=== PATIENT | female | born 1985 | race Caucasian/White ===

== ENCOUNTER 2018-11-24 18:43 | Emergency (ER) | payer OTHER ==
[~2018-11-24] VITALS: Ht 160 cm; Wt 69.1 kg
[2018-11-24] MEDS ORDERED: ceFAZolin SODIUM 2 GM in IV DEXTROSE 5% 50 ML IV ONE (19:15)
[2018-11-24] MEDS ORDERED: IV NORMAL SALINE 1,000ML 1,000 ML IV ONE ×2 (19:15→21:15)
[2018-11-24 19:46] LABS: BASO % 0 % (0-3); EOS # 0.1 x10^3/uL (0.0-0.7); EOS % 1 % (0-3); HEMATOCRIT 44.1 % (36.0-47.0); LYMPH # 0.5 x10^3/uL (1.0-4.8); LYMPH % 7 % (24-48); MEAN CORPUSCULAR HEMOGLOBIN 29 pg (25-35); MEAN CORPUSCULAR HGB CONC 34 g/dL (31-37); MEAN CORPUSCULAR VOLUME 86 fL (79-100); MONO # 0.7 x10^3/uL (0.0-1.1); MONO % 9 % (0-9); NEUT # 6.4 x10^3uL (1.8-7.7); NEUT % 83 % (31-73); PLATELET COUNT 175 x10^3/uL (140-400); RED BLOOD COUNT 5.13 x10^6/uL (3.50-5.40); RED CELL DISTRIBUTION WIDTH 12.4 % (11.5-14.5); WHITE BLOOD COUNT 7.7 x10^3/uL (4.0-11.0)
[2018-11-24] MEDS ORDERED: ceFAZolin SODIUM 1 GM VIAL ONE (19:47)
[2018-11-24 19:57] LABS: ALBUMIN/GLOBULIN RATIO 1.1 (1.0-1.7); CALCIUM 8.5 mg/dL (8.5-10.1); CREATININE 0.8 mg/dL (0.6-1.0); GFR 82.1; POTASSIUM 3.4 mmol/L (3.5-5.1); TOTAL BILIRUBIN 0.3 mg/dL (0.2-1.0); TOTAL PROTEIN 7.5 g/dL (6.4-8.2)
[2018-11-24] MEDS ORDERED: IOHEXOL 300 MG/ML 75 ML VIAL. IV ONE (20:30)
[2018-11-24] MEDS ORDERED: IOHEXOL 350 MG/ML 100 ML VIAL. IV ONE (20:45)
[2018-11-24 21:08] LABS: INFLUENZA A PATIENT NEGATIVE (NEGATIVE); INFLUENZA B PATIENT NEGATIVE (NEGATIVE)
[2018-11-24 21:21] LABS: BILIRUBIN,URINE NEG (NEG); CLARITY,URINE CLEAR; COLOR,URINE YELLOW; GLUCOSE,URINE NEG (NEG)
[2018-11-24 21:22] LABS: BACTERIA,URINE FEW /HPF (0-FEW); HYALINE CASTS, URINE OCC /HPF; NITRITE,URINE NEG (NEG); RBC,URINE RARE /HPF (0-2); SQUAMOUS EPITHELIAL CELL,UR OCC /LPF; UROBILINOGEN,URINE 0.2 mg/dL (0.2 mg/dL); WBC,URINE OCC /HPF (0-4)
--- NOTE | 2018-11-24 21:32 | RAD ---
CTA OF THE CHEST WITH AND WITHOUT CONTRAST Clinical indications: Dizziness and dyspnea and fever. 6 weeks post . Mastitis. Technique: Noncontrast axial localizer was performed. After IV infusion of 75 cc of Omnipaque 350, helical CT scanning of the chest was performed using the CT pulmonary embolism protocol. A coronal MIP reconstruction was generated. PQRS compliance Statement One or more of the following individualized dose reduction techniques were utilized for this study: 1. Automated exposure control 2. Adjustment of the mA and/or kV according to patient size 3. Use of iterative reconstruction technique Comparison: None available. Findings: No pulmonary embolism is evident. No focal aneurysmal dilatation or dissection of the thoracic aorta is seen. Heart size is normal and no pericardial effusion is seen. No enlarged thoracic lymphadenopathy is evident. Both breasts are engorged consistent with recent state. Certainly, mastitis may be present clinically. No pleural effusion or pneumothorax is seen. No lung infiltrate is seen. The proximal bronchial tree is patent. No lytic process is seen. No adrenal mass is evident. IMPRESSION: No pulmonary embolism. No acute lung infiltrate. Electronically signed by: Pierre Aguilar MD (11/24/2018 9:29 PM) [facility]
[2018-11-24] MEDS ORDERED: ONDANSETRON PF 4 MG/2 ML VIAL. ONE (22:31)
[2018-11-24] MEDS ORDERED: ONDA4TAB11 PO (22:35)
[2018-11-24] MEDS ORDERED: CEPH-264 PO (22:35)
--- NOTE | 2018-11-24 22:37 | PHYS DOC ---
Adult General Chief Complaint Chief Complaint fever HPI HPI 33 years old female who 6 weeks presented to the emergency department with left breast pain, fever, shortness breath she was seen and evaluated by her primary care provider diagnosed with mastitis started her oral antibiotic she took 2 doses and she vomited once Review of Systems Review of Systems Constitutional: Denies chills [] Eyes: Denies change in visual acuity, redness, or eye pain [] HENT: Denies nasal congestion or sore throat [] Respiratory: Denies cough or shortness of breath [] Cardiovascular: No additional information not addressed in HPI [] GI: Denies abdominal pain, nausea, vomiting, bloody stools or diarrhea [] : Denies dysuria or hematuria [] Musculoskeletal: Denies back pain or joint pain [] Integument: Denies rash or skin lesions [] Neurologic: Denies headache, focal weakness or sensory changes [] Endocrine: Denies polyuria or polydipsia [] All other systems were reviewed and found to be within normal limits, except as documented in this note. Current Medications Current Medications Current Medications Medications (Trade) Dose Ordered Sig/Edison Start Time Stop Time Status Last Admin Dose Admin Cefazolin Sodium (Ancef) 1 gm STK-MED ONCE 11/24/18 19:47 11/24/18 19:48 DC Cefazolin Sodium 2 gm/Dextrose 50 ml @ 100 mls/hr 1X ONCE 11/24/18 19:15 11/24/18 19:44 DC 11/24/18 20:03 100 MLS/HR Iohexol (Omnipaque 300 Mg/ml) 75 ml 1X ONCE 11/24/18 20:30 11/24/18 20:31 DC Iohexol (Omnipaque 350 Mg/ml) 100 ml 1X ONCE 11/24/18 20:45 11/24/18 20:46 DC 11/24/18 20:44 100 ML Ondansetron HCl (Zofran) 4 mg 1X ONCE 11/24/18 22:45 11/24/18 22:46 UNV 11/24/18 22:34 4 MG Sodium Chloride 1,000 ml @ 1,000 mls/hr 1X ONCE 11/24/18 21:15 11/24/18 22:15 DC 11/24/18 21:03 1,000 MLS/HR Allergies Allergies Allergies Coded Allergies Type Severity Reaction Last Updated Verified No Known Drug Allergies 11/24/18 No Physical Exam Physical Exam Constitutional: Well developed, well nourished, no acute distress, non-toxic appearance. [] HENT: Normocephalic, atraumatic, bilateral external ears normal, oropharynx moist, no oral exudates, nose normal. [] Eyes: PERRLA, EOMI, conjunctiva normal, no discharge. [] Neck: Normal range of motion, no tenderness, supple, no stridor. [] Cardiovascular:Heart rate regular rhythm, no murmur [] Lungs & Thorax: Bilateral breath sounds clear to auscultation [] Abdomen: Bowel sounds normal, soft, no tenderness, no masses, no pulsatile masses. [] Skin: Warm, dry, no erythema, no rash. [] Back: No tenderness, no CVA tenderness. [] Extremities: No tenderness, no cyanosis, no clubbing, ROM intact, no edema. [] Neurologic: Alert and oriented X 3, normal motor function, normal sensory function, no focal deficits noted. [] Psychologic: Affect normal, judgement normal, mood normal. [] Current Patient Data Vital Signs Vital Signs Date Time Temp Pulse Resp B/P (MAP) Pulse Ox O2 Delivery O2 Flow Rate FiO2 11/24/18 20:50 97.7 107 18 112/63 (79) 96 Room Air Lab Results Laboratory Tests Test 11/24/18 19:20 11/24/18 20:40 White Blood Count 7.7 x10^3/uL (4.0-11.0) Red Blood Count 5.13 x10^6/uL (3.50-5.40) Hemoglobin 15.0 g/dL (12.0-15.5) Hematocrit 44.1 % (36.0-47.0) Mean Corpuscular Volume 86 fL (79-100) Mean Corpuscular Hemoglobin 29 pg (25-35) Mean Corpuscular Hemoglobin Concent 34 g/dL (31-37) Red Cell Distribution Width 12.4 % (11.5-14.5) Platelet Count 175 x10^3/uL (140-400) Neutrophils (%) (Auto) 83 % (31-73) H Lymphocytes (%) (Auto) 7 % (24-48) L Monocytes (%) (Auto) 9 % (0-9) Eosinophils (%) (Auto) 1 % (0-3) Basophils (%) (Auto) 0 % (0-3) Neutrophils # (Auto) 6.4 x10^3uL (1.8-7.7) Lymphocytes # (Auto) 0.5 x10^3/uL (1.0-4.8) L Monocytes # (Auto) 0.7 x10^3/uL (0.0-1.1) Eosinophils # (Auto) 0.1 x10^3/uL (0.0-0.7) Basophils # (Auto) 0.0 x10^3/uL (0.0-0.2) Sodium Level 142 mmol/L (136-145) Potassium Level 3.4 mmol/L (3.5-5.1) L Chloride Level 105 mmol/L (98-107) Carbon Dioxide Level 26 mmol/L (21-32) Anion Gap 11 (6-14) Blood Urea Nitrogen 18 mg/dL (7-20) Creatinine 0.8 mg/dL (0.6-1.0) Estimated GFR (Cockcroft-Gault) 82.1 BUN/Creatinine Ratio 23 (6-20) H Glucose Level 94 mg/dL (70-99) Calcium Level 8.5 mg/dL (8.5-10.1) Total Bilirubin 0.3 mg/dL (0.2-1.0) Aspartate Amino Transferase (AST) 13 U/L (15-37) L Alanine Aminotransferase (ALT) 17 U/L (14-59) Alkaline Phosphatase 83 U/L (46-116) Total Protein 7.5 g/dL (6.4-8.2) Albumin 4.0 g/dL (3.4-5.0) Albumin/Globulin Ratio 1.1 (1.0-1.7) Influenza Type A (Rapid) Negative (NEGATIVE) Influenza Type B (Rapid) Negative (NEGATIVE) Urine Collection Type Unknown Urine Color Yellow Urine Clarity Clear Urine pH 5.5 Urine Specific Koppel 1.015 Urine Protein Neg (NEG-TRACE) Urine Glucose (UA) Neg mg/dL (NEG) Urine Ketones (Stick) 80 mg/dL (NEG) Urine Blood Neg (NEG) Urine Nitrite Neg (NEG) Urine Bilirubin Neg (NEG) Urine Urobilinogen Dipstick 0.2 mg/dL (0.2 mg/dL) Urine Leukocyte Esterase Neg (NEG) Urine RBC Rare /HPF (0-2) Urine WBC Occ /HPF (0-4) Urine Squamous Epithelial Cells Occ /LPF Urine Bacteria Few /HPF (0-FEW) Urine Hyaline Casts Occ /HPF Urine Mucus Slight /LPF EKG EKG [] Radiology/Procedures Radiology/Procedures [] Course & Med Decision Making Course & Med Decision Making Pertinent Labs and Imaging studies reviewed. (See chart for details) [] Final Impression Final Impression [] Problems: (1) Fever Qualifiers: Qualified Codes: R50.9 - Fever, unspecified Dragon Disclaimer Dragon Disclaimer This electronic medical record was generated, in whole or in part, using a voice recognition dictation system. LANNY MUNOZ MD Nov 24, 2018 22:37
--- NOTE | 2018-11-24 22:41 | RAD ---
AP portable chest radiograph 11/24/2018 Clinical History: Shortness of breath. An AP erect portable digital radiograph of the chest was obtained. No previous studies are available for comparison. The cardiac and mediastinal silhouettes are within normal limits in size and configuration. No acute pulmonary infiltrate is seen. No pleural effusion or pneumothorax is noted. The osseous structures are grossly intact. IMPRESSION: No acute abnormality is seen. Electronically signed by: Satinder Lizama MD (11/24/2018 10:38 PM) [facility]
[2018-11-24 22:45] VITALS: BP 109/69
[2018-11-24] MEDS ORDERED: ONDANSETRON PF 4 MG/2 ML VIAL. IV ONE (22:45)
== END 2018-11-24 22:41 | disposition home or self-care (01) ==
LOC: ER 18:43
DX: O86.4 Pyrexia of unknown origin following delivery (principal); N64.4 Mastodynia; R11.11 Vomiting without nausea
CPT/HCPCS: 36415; 71045; 71275; 80053; 81001; 85025; 87040; 87804; 96361; 96365; 96375; 99284; J0690; J2405; Q9967; J7030